=== PATIENT | male | born 1985 | race Caucasian/White ===

== ENCOUNTER 2017-02-27 00:24 | Emergency (ER) ==
[2017-02-27] MEDS ORDERED: SODIUM CHLORIDE 1,000 ML IV STA (00:28)
[2017-02-27 00:35] VITALS: TEMP 98; BMI 26.4
[2017-02-27] MEDS ORDERED: TORADOL IVP STA (00:37)
[2017-02-27] MEDS ORDERED: DILAUDID 1 MG/ML SYRINGE IVP STA (00:37)
[2017-02-27] MEDS ORDERED: ZOFRAN 4 MG/2 ML IVP STA (00:37)
[2017-02-27 00:42] LABS: BASOPHILS # (AUTO) 0.1 K/uL (0-0.2); BASOPHILS % (AUTO) 0.4 % (0.0-3.0); EOSINOPHILS # (AUTO) 0.2 K/ul (0.0-0.7); EOSINOPHILS % (AUTO) 1.9 % (0.0-7.0); HEMATOCRIT 38.5 % (42.0-52.0); HEMOGLOBIN 13.5 g/dl (14.0-18.0); IMMATURE GRANULOCYTE % (AUTO) 0.3 % (0.0-5.0); LYMPHOCYTES # (AUTO) 2.8 K/uL (0.60-3.4); LYMPHOCYTES % (AUTO) 24.7 (10.0-50.0); MEAN CORPUSCULAR HEMOGLOBIN 30.7 pg (27.0-31.0); MEAN CORPUSCULAR HGB CONC 35.1 (31.8-35.4); MEAN CORPUSCULAR VOLUME 87.5 fl (80.0-94.0); MONOCYTES # (AUTO) 0.7 K/uL (0.4-2.0); MONOCYTES % (AUTO) 5.9 (0-10); NEUTROPHILS # (AUTO) 7.5 K/ul (2.0-6.9); NEUTROPHILS % (AUTO) 66.8; PLATELET COUNT 233 10^3/uL (140-440); WHITE BLOOD COUNT 11.26 K/ul (4.2-10.2)
[2017-02-27 01:02] LABS: ALBUMIN 3.7 g/dL (3.4-5.0); ALBUMIN/GLOBULIN RATIO 1.09; ANION GAP 16.5; BILIRUBIN,TOTAL 0.53 mg/dL (0.00-1.20); BUN/CREATININE RATIO 8.59; CALCIUM 8.9 mg/dL (8.2-10.2); CREATININE 1.28 mg/dL (0.60-1.10); POTASSIUM 3.5 mmol/L (3.5-5.1); TOTAL PROTEIN 7.1 g/dL (6.4-8.2)
[2017-02-27 01:11] LABS: ERYTHROCYTE SEDIMENTATION RATE 8 mm/hr (0-15); ESR INTERNAL QC INTERNAL QC VALID
[2017-02-27 01:27] LABS: TROPONIN I 0.01 ng/ml (0.0000-0.4000)
[2017-02-27 01:35] LABS: CREATINE KINASE MB 1.4 ng/ml (0.0-3.6)
[2017-02-27] MEDS ORDERED: ATIVAN IVP STA (01:41)
[2017-02-27] MEDS ORDERED: ATIVAN ONE (01:41)
--- NOTE | 2017-02-27 02:02 | CT ---
Exam: CT of the abdomen and pelvis without and with contrast History: Right lower quadrant pain Technique: [address] of the abdomen and pelvis without and with intravascular contrast FINDINGS: The lung bases are clear. No significant liver abnormality. The adrenals, pancreas and sp larissa are unremarkable. The stomach and hiatus are unremarkable.The gallbladder appears normal. Mild right hydroureter secondary to a 2 mm ureterovesicular junction calculus. The kidneys appear normal otherwise. Vascular structures appear normal. Right ureterovesicular junction calculus. Pelvic genitourinary structures appear normal otherwise. No acute findings of the skeleton. Impression: 1. Mild right hydronephrosis and hydroureter secondary to a 2 mm ureterovesicular junction calculus . Negative exam otherwise.
[2017-02-27 04:21] VITALS: BP 131/73
--- NOTE | 2017-02-27 05:10 | ED.PDOC ---
General ED Provider: Dr. RUDY LANGE-ER Chief Complaint: Abdominal Pain Stated Complaint: i hurting Time Seen by Physician: 00:30 Mode of Arrival: Walk-In Information Source: Patient, Family Exam Limitations: No limitations Primary Care Provider: RUDY LANGE Nursing and Triage Documentation Reviewed and Agree: Yes GI Complaint Exam - Abdominal Pain Complaint/Exam Onset: Gradual Duration: several hours Symptoms Are: Still present Timing: Constant Initial Severity: Mild Current Severity: Moderate Location of Pain: Discrete, RLQ Radiates To: Reports: Back Character: Reports: Dull, Aching Alleviating: Reports: None Associated Signs and Symptoms: Reports: Back pain. Denies: Diaphoresis, Fever, Cough, Chest pain, Dizziness, Constipation, Blood in stool, Dysuria, Urinary frequency, Decreased urine output, Decreased appetite, Discharge, Nausea, Vomiting, Diarrhea, Decreased activity AAA Risk Factors: Reports: None Differential Diagnoses: Appendicitis, Constipation, Pancreatitis, Ureteral Stone Quality Indicator For Non-Traumatic Chest Pain/Syncope: EKG Performed Review of Systems - Review Of Systems Constitutional: Reports: No symptoms Eyes: Reports: No symptoms Ears, Nose, Mouth, Throat: Reports: No symptoms Respiratory: Reports: No symptoms Cardiac: Reports: No symptoms GI: Reports: Abdominal pain : Reports: No symptoms Musculoskeletal: Reports: No symptoms Skin: Reports: No symptoms Neurological: Reports: No symptoms Endocrine: Reports: No symptoms Hematologic/Lymphatic: Reports: No symptoms All Other Systems: Reviewed and Negative Past Medical History - Past Medical History Previously Healthy: Yes Endocrine: Reports: None Cardiovascular: Reports: None Respiratory: Reports: None Hematological: Reports: None Gastrointestinal: Reports: None Genitourinary: Reports: None Neuro/Psych: Reports: None Musculoskeletal: Reports: None Cancer: Reports: None - Surgical History General Surgical History: Reports: Unknown - Family History Family History: Reports: Unknown - Social History Smoking Status: Current every day smoker Hx Substance Use: No Alcohol Screening: None Lives: With family - Immunizations Tetanus Shot up to Date: (UNKNOWN) Physical Exam - Physical Exam Appearance: Well-appearing, No pain distress, Well-nourished Pain Distress: Moderate Eyes: EBONY, EOMI, Conjunctiva clear ENT: Ears normal, Nose normal, Oropharynx normal Neck: Supple Respiratory: Airway patent, Breath sounds clear, Breath sounds equal, Respirations nonlabored Cardiovascular: RRR GI/: Soft, Nontender, No masses, Bowel sounds normal, No Organomegaly Musculoskeletal: Normal strength, ROM intact, No edema, No calf tenderness Skin: Warm, Dry, Normal color Neurological: Sensation intact Psychiatric: Affect appropriate, Mood appropriate Interpretation - Radiology Interpretation Radiology Interpretation By: Radiologist Radiology Results: Positive Exam Interpreted: CT Scan ("2mm right UV stone") Re-Evaluation - Re-Evaluation Time of Re-Evaluation: 05:09 Status: Improved Vital Signs Stable: Yes Pain Level: 0 Appearance: NAD Lungs: Clear Skin: Warm and Dry Neuro: Alert and Oriented X3 CV: RRR Critical Care Note - Critical Care Note Total Time (mins): 0 Course - Course Hematology/Chemistry: 02/27/17 00:40 02/27/17 00:40 Orders, Labs, Meds: Lab Review 02/27/17 02/27/17 00:40 06:00 WBC 11.26 H RBC 4.40 L Hgb 13.5 L Hct 38.5 L MCV 87.5 MCH 30.7 MCHC 35.1 RDW Coeff of Rogelio 12.6 Plt Count 233 Immature Gran % (Auto) 0.3 Neut % (Auto) 66.8 Lymph % (Auto) 24.7 Harnett % (Auto) 5.9 Eos % (Auto) 1.9 Baso % (Auto) 0.4 Immature Gran # (Auto) 0.0 Neut # 7.5 H Lymph # 2.8 Harnett # 0.7 Eos # 0.2 Baso # 0.1 ESR 8 Sodium 137 Potassium 3.5 Chloride 102 Carbon Dioxide 22 Anion Gap 16.5 BUN 11 Creatinine 1.28 H Estimated GFR (MDRD) 65.00 BUN/Creatinine Ratio 8.59 Glucose 182 H Calcium 8.9 Total Bilirubin 0.53 AST 17 ALT 16 Alkaline Phosphatase 84 Total Creatine Kinase 208 CK-MB (CK-2) 1.4 CK-MB (CK-2) % 0.08446 Troponin I 0.0100 Total Protein 7.1 Albumin 3.7 Globulin 3.4 Albumin/Globulin Ratio 1.09 Amylase 55 Lipase 55 Urine Color Sangeeta Urine Clarity Clear Urine pH 6.0 Ur Specific [place] >=1.030 Urine Protein 2+ Urine Glucose (UA) Negative Urine Ketones Negative Urine Blood 3+ Urine Nitrite Negative Urine Bilirubin 1+ Urine Urobilinogen 1.0 Ur Leukocyte Esterase Negative Ur Squamous Epith Cells Pending Orders Category Date Time Status EKG-(ED ONLY) Stat CARDIO 02/27/17 00:38 Completed NPO REMINDER: IMAGING ONCE CARE 02/27/17 00:38 Completed ED IV/MEDIPORT/POWERPORT .ONCE EMERGENCY 02/27/17 00:28 Active Strain Urine [ED STRAIN URINE] .ONCE EMERGENCY 02/27/17 06:15 Active AMYLASE Stat LAB 02/27/17 00:40 Completed CBC W/ AUTO DIFF Stat LAB 02/27/17 00:40 Completed COMPREHENSIVE METABOLIC PANEL Stat LAB 02/27/17 00:40 Completed CREATINE KINASE Stat LAB 02/27/17 00:40 Completed ESR Stat LAB 02/27/17 00:40 Completed LIPASE Stat LAB 02/27/17 00:40 Completed TROPONIN I Stat LAB 02/27/17 00:40 Completed URINALYSIS C & S IF INDICATED Stat LAB 02/27/17 06:00 Results URINE DRUG SCREEN (RAPID FOR ED) [DRUG SCREEN, URINE, LAB 02/27/17 06:08 Received RAPID] Stat 0.9 % Sodium Chloride [Saline Flush] MEDS 02/27/17 00:28 Ordered 1 syr IVF PRN PRN Hydromorphone HCl [Dilaudid 1 mg/ml Syringe] MEDS 02/27/17 00:37 Discontinued 1 mg IVP ONCE STA Ketorolac Tromethamine [Toradol] MEDS 02/27/17 00:37 Discontinued 30 mg IVP ONCE STA Lorazepam Inj [Ativan] MEDS 02/27/17 01:41 Discontinued 2 mg .ROUTE .STK-MED ONE Mag Hydrox/Al Hydrox/Simeth [Mylanta Susp] MEDS 02/27/17 06:14 Stat 30 ml PO ONCE STA Ondansetron HCl/Pf [Zofran 4 mg/2 ml] MEDS 02/27/17 00:37 Discontinued 4 mg IVP ONCE STA Sodium Chloride 0.9% [Sodium Chloride] 1,000 ml MEDS 02/27/17 00:28 Active IV 100 mls/hr CT ABDOMEN/PELVIS W/WO CONTRAS Stat RADS 02/27/17 00:38 Completed Medications Generic Name Dose Route Start Last Admin Trade Name Freq PRN Reason Stop Dose Admin Sodium Chloride 1,000 mls @ 100 mls/hr 02/27/17 00:28 02/27/17 01:00 Sodium Chloride IV 02/27/17 10:27 100 mls/hr .Q10H STA Administration Sodium Chloride 1 syr 02/27/17 00:28 02/27/17 01:53 Saline Flush IVF 1 syr PRN PRN Administration To flush IV Discontinued Medications Generic Name Dose Route Start Last Admin Trade Name Devonteq PRN Reason Stop Dose Admin Al Hydroxide/Mg Hydroxide 30 ml 02/27/17 06:14 Mylanta Susp PO 02/27/17 06:15 ONCE STA Hydromorphone HCl 1 mg 02/27/17 00:37 02/27/17 01:16 Dilaudid 1 Mg/Ml Syringe IVP 02/27/17 00:38 1 mg ONCE STA Administration Ketorolac Tromethamine 30 mg 02/27/17 00:37 02/27/17 01:17 Toradol IVP 02/27/17 00:38 30 mg ONCE STA Administration Ondansetron HCl 4 mg 02/27/17 00:37 02/27/17 01:17 Zofran 4 Mg/2 Ml IVP 02/27/17 00:38 4 mg ONCE STA Administration Vital Signs: Temp Pulse Resp BP Pulse Ox 02/27/17 04:21 69 20 131/73 96 02/27/17 02:16 80 18 129/84 96 02/27/17 00:29 98 F 76 28 H 124/77 100 Departure - Departure Time of Disposition: 06:16 Disposition: HOME SELF-CARE Discharge Problem: Ureteral stone Instructions: Ureteral Stones (ED) Condition: Good Pt referred to PMD for follow-up: Yes Additional Instructions: norco 7.5mg q 4hrs prn pain#10---flomax 0.4q daily #2--push fluids--recheck in 48hrs if stone not passed--strain all urine Allergies/Adverse Reactions: Allergies No Known Allergies Allergy (Verified 02/27/17 01:35) Home Medications: Ambulatory Orders 1 [No Reported Medications] 11/23/15 Disposition Discussed With: Patient
[2017-02-27 06:13] LABS: ADD URINE MICROSCOPIC YES; BILIRUBIN,URINE 1+ (NEGATIVE); KETONES,URINE Negative (NEGATIVE); LEUKOCYTE ESTERASE ,URINE Negative (NEGATIVE); NITRITE,URINE Negative (NEGATIVE); PROTEIN,URINE 2+ (NEGATIVE); URINE, BLOOD 3+ (NEGATIVE)
[2017-02-27] MEDS ORDERED: MYLANTA SUSP PO STA (06:14)
[2017-02-27] MEDS ORDERED: FLOMAX PO STA (06:16)
[2017-02-27 06:21] LABS: COCAIN SCREEN,URINE NEGATIVE (NEGATIVE)
== END 2017-02-27 06:26 | disposition home or self-care (01) ==
LOC: ED 00:24
DX: N20.1 Calculus of ureter (principal); F17.210 Nicotine dependence, cigarettes, uncomplicated
CPT/HCPCS: 36415; 80053; 80306; 81001; 82150; 82550; 82553; 83690; 84484; 85025; 85651; 93005; 93010; 96361; 96374; 96375; 99284

== ENCOUNTER 2017-06-23 08:12 | Emergency (ER) ==
[2017-06-23 08:19] VITALS: BP 147/65; TEMP 98.6; BMI 24.7
--- NOTE | 2017-06-23 08:29 | ED.PDOC ---
General ED Provider: Dr. RUDY ADAM Chief Complaint: Chest Pain Stated Complaint: Chest Tightness. HPI: Onset yesterday evening after splitting wood. Sensation across back like a rubber band tightening. Denies SOB , Diaphoresis or Nausea or vomiting. Has some aching in Lt hand referred from Lt shoulder. Admits to using canabis yesterday attempting to relax. Past use of Meth, most recently 1 week ago. Time Seen by Physician: 08:30 Mode of Arrival: Walk-In Information Source: Patient Exam Limitations: No limitations Primary Care Provider: RUDY LANGE Nursing and Triage Documentation Reviewed and Agree: Yes Reviewed sepsis parameters & appropriate labs ordered?: Yes System Inflammatory Response Syndrome: Not Applicable Sepsis Protocol: For patient's 13 years and over: Temp is 96.8 and below OR 101 and greater Pulse >90 BPM Resp >20/minute Acutely Altered Mental Status Are patient's symptoms suggestive of a new infection, such as: -Pneumonia -Skin, Soft Tissue -Endocarditis -UTI -Bone, Joint Infection -Implantable Device -Acute Abdominal Infection -Wound Infection -Meningitis -Blood Stream Catheter Infection -Unknown System Inflammatory Response Syndrome: Not Applicable Cardiovascular Complaint Exam - Chest Pain Complaint/Exam Duration: 12 hrs Symptoms Are: Still present Timing: Constant Initial Severity: Moderate Current Severity: Mild Location: Reports: Left anterior, Other (posterior chest) Pain Radiates: Reports: Left shoulder, Other (Lt Hand) Character: Reports: Aching, Tightness Aggravating: Reports: Deep breaths Alleviating: Reports: Upright position Associated Signs and Symptoms: Reports: Back pain. Denies: Diaphoresis, Nausea , Vomiting, Palpitations, Cough, Abdominal pain, Dizziness, Short of air, Calf pain, Calf swelling Related History: Denies: Similar episode Related Surgical History: Reports: None History of Healthcare-Acquired Pneumonia: Reports: No AMI/ACS Risk Factors: Reports: Smoking (Canabis and meht use) TAD Risk Factors: Reports: None Pulmonary Embolism Risk Factors: Reports: None Prior Care for this Complaint: No Review of Systems - Review Of Systems Constitutional: Denies: Chills, Diaphoresis, Malaise, Weakness, Sweats Eyes: Reports: Blurred vision. Denies: Blindness, Decreased acuity, Foreign body sensation, Inflammation, Previous injury, Tunnel vision Ears, Nose, Mouth, Throat: Denies: Ear pain, Ear discharge, Nose pain, Nose discharge, Mouth pain, Mouth swelling Respiratory: Denies: Cough, Orthopnea, Short of air, Stridor, Wheezing Cardiac: Reports: Chest pain. Denies: Irregular heart rate, Palpitations GI: Reports: No symptoms : Reports: No symptoms Musculoskeletal: Reports: Back pain, Muscle stiffness Skin: Reports: No symptoms Neurological: Reports: No symptoms Endocrine: Reports: No symptoms Hematologic/Lymphatic: Reports: No symptoms All Other Systems: Reviewed and Negative Past Medical History - Past Medical History Previously Healthy: Yes Endocrine: Reports: None Cardiovascular: Reports: None Respiratory: Reports: None Hematological: Reports: None Gastrointestinal: Reports: None Genitourinary: Reports: None Neuro/Psych: Reports: None Musculoskeletal: Reports: None Cancer: Reports: None - Surgical History General Surgical History: Reports: Unknown - Family History Family History: Reports: Unknown - Social History Smoking Status: Current every day smoker, Light tobacco smoker Hx Substance Use: No Alcohol Screening: None Physical Exam - Physical Exam Appearance: No pain distress, Well-nourished Ill-appearing: None Pain Distress: None Eyes: EBONY, EOMI, Conjunctiva clear, Conjunctiva inflammed, Conjunctiva pale, Right pupil size, Left pupil size ENT: Ears normal, Nose normal, Oropharynx normal, TMs Occluded Respiratory: Airway patent, Breath sounds clear, Breath sounds equal Cardiovascular: RRR, Pulses normal, No rub, No murmur GI/: Soft, Nontender, No masses, Bowel sounds normal, No Organomegaly Musculoskeletal: Normal strength, ROM intact (Tenderness across upper thoracic spinal region with paraspinous muscular spasm) Skin: Warm, Dry, Normal color Neurological: Sensation intact, Motor intact, Cranial nerves intact, Alert, Oriented Psychiatric: Affect appropriate, Mood appropriate Critical Care Note - Critical Care Note Total Time (mins): 0 Course - Course Hematology/Chemistry: 06/23/17 09:15 06/23/17 09:15 Orders, Labs, Meds: Lab Review 06/23/17 06/23/17 09:15 09:15 WBC 12.74 H RBC 4.89 Hgb 15.0 Hct 44.1 MCV 90.2 MCH 30.7 MCHC 34.0 RDW Coeff of Rogelio 12.2 Plt Count 306 Immature Gran % (Auto) 0.2 Neut % (Auto) 73.4 Lymph % (Auto) 18.1 Bartholomew % (Auto) 5.4 Eos % (Auto) 2.4 Baso % (Auto) 0.5 Immature Gran # (Auto) 0.0 Neut # 9.3 H Lymph # 2.3 Bartholomew # 0.7 Eos # 0.3 Baso # 0.1 Sodium 140 Potassium 3.8 Chloride 105 Carbon Dioxide 28 Anion Gap 10.8 BUN 12 Creatinine 1.07 Estimated GFR (MDRD) 79.00 BUN/Creatinine Ratio 11.21 Glucose 86 Calcium 8.8 Total Bilirubin 0.3 AST 20 ALT 18 Alkaline Phosphatase 92 Troponin I < 0.0100 Total Protein 7.4 Albumin 3.8 Globulin 3.6 Albumin/Globulin Ratio 1.06 Orders Category Date Time Status EKG-(ED ONLY) Stat CARDIO 06/23/17 08:49 Completed ED HOSPICE COORDINATOR APPLIED EMERGENCY 06/23/17 09:06 Active CBC W/ AUTO DIFF Stat LAB 06/23/17 09:15 Completed COMPREHENSIVE METABOLIC PANEL Stat LAB 06/23/17 09:15 Completed TROPONIN I Stat LAB 06/23/17 09:15 Completed Ketorolac Tromethamine [Toradol] MEDS 06/23/17 10:27 Stat 15 mg IVP ONCE STA Orphenadrine Citrate [Norflex] MEDS 06/23/17 10:28 Stat 100 mg PO ONCE STA CHEST, 2 VIEWS PA & LAT Stat RADS 06/23/17 09:06 Completed Medications Discontinued Medications Generic Name Dose Route Start Last Admin Trade Name Freq PRN Reason Stop Dose Admin Ketorolac Tromethamine 15 mg 06/23/17 10:27 06/23/17 10:37 Toradol IVP 06/23/17 10:28 15 mg ONCE STA Administration Orphenadrine Citrate 100 mg 06/23/17 10:28 06/23/17 10:34 Norflex PO 06/23/17 10:29 100 mg ONCE STA Administration Vital Signs: Temp Pulse Resp BP Pulse Ox 06/23/17 08:12 98.6 F 92 H 20 147/65 H 99 RUY Risk Score RUY Risk Score: Risk Score Odds of by 30D 0 0.1 (0.1-0.2) 1 0.3 (0.2-0.3) 2 0.4 (0.3-0.5) 3 0.7 (0.6-0.9) 4 1.2 (1.0-1.5) 5 2.2 (1.9-2.6) 6 3.0 (2.5-3.6) 7 4.8 (3.8-6.1) Departure - Departure Time of Disposition: 10:30 Disposition: HOME SELF-CARE Discharge Problem: Back pain Condition: Good Pt referred to PMD for follow-up: Yes (1 week) Prescriptions: Ibuprofen 200 mg PO Q6HR #20 tablet Orphenadrine Citrate 100 mg PO Q12HR PRN #20 tablet.er PRN Reason: Severe Pain Allergies/Adverse Reactions: Allergies No Known Allergies Allergy (Verified 06/23/17 08:21) Home Medications: Ambulatory Orders Ibuprofen 200 mg PO Q6HR #20 tablet 06/23/17 Orphenadrine Citrate 100 mg PO Q12HR PRN #20 tablet.er 06/23/17 Attending Provider: ATTENDING PROVIDER: DATE OF SERVICE: 06/23/17 SUBJECTIVE: This 32 year old WHITE/ M was hospitalized . REVIEW OF SYSTEMS: CONSTITUTIONAL: No night sweats. No fatigue, malaise, lethargy. No fever or chills. HEENT: Eyes: No visual changes. No eye pain. No eye discharge. ENT: No runny nose. No epistaxis. No sinus pain. No odynophagia. No congestion. RESPIRATORY: No cough, no congestion. No hemoptysis. No shortness of breath. CARDIOVASCULAR: No angina symptoms. No CHF symptoms. No atypical chest pain for CAD. No palpitations. No orthopnea.. GASTROINTESTINAL: No abdominal pain. No nausea or vomiting. No diarrhea or constipation. No hematemesis. No hematochezia. GENITOURINARY: No urgency. No frequency. No dysuria. No hematuria. No obstructive symptoms. No discharge. No pain. No significant abnormal bleeding. MUSCULOSKELETAL: No musculoskeletal pain; no joint swelling. NEUROLOGICAL: Awake, alert, oriented to time, place and person. No headache. No neck pain. No syncope. No seizures. No dizziness. PSYCHIATRIC: Not anxious. No depression. No suicidal thoughts. No homicidal thoughts. SKIN: No rash. No lesions. No wounds. ENDOCRINE: No unexplained weight loss. No weight gain. HEMATOLOGIC/LYMPHATIC: No anemia. No purpura. No petechiae. No prolonged or excessive bleeding. No palpable lymph nodes. PHYSICAL EXAMINATION: GENERAL: The patient is awake, alert and oriented, lying/sitting in bed in no distress. VITAL SIGNS: Temperature 98.6 F, Pulse 92, Respiratory Rate 20, BP 147/65, Pulse Ox 99% HEENT: Head normocephalic, atraumatic. Eyes: Extraocular muscles are intact. Pupils are equal, round and reactive to light and accommodation. Ears: No lesions. Nose appeared normal. Throat: No exudate or erythema. NECK: Supple. No JVD, no carotid bruit. No lymphadenopathy or thyromegaly. LUNGS: Clear to auscultation. Percussion note normal. Chest symmetrical. HEART: S1, S2, no S3. No murmurs. No cyanosis or clubbing. No ascites. Pulses: Dorsalis pedis and posterior tibial pulses +1 to +2 both sides. ABDOMEN: Soft. Non-tender. Bowel sounds active. No CVA tenderness. No mass felt. EXTREMITIES: No edema. Full range of motion of all extremities, equal. NEUROLOGIC: No focal deficit. Cranial nerves II through XII are grossly intact. No headache, no double vision or headache. SKIN: Not dry. Intact. Turgor-normal. LYMPHATIC: No palpable lymph nodes/no lymphedema. MUSCULOSKELETAL: Normal joints with no swelling. Muscle tone is normal. LAB REVIEW: 06/23/17 09:15 06/23/17 09:15 06/23/17 09:15: Sodium 140, Potassium 3.8, Chloride 105, Carbon Dioxide 28, Anion Gap 10.8, BUN 12, Creatinine 1.07, Estimated GFR (MDRD) 79.00, BUN/ Creatinine Ratio 11.21, Glucose 86, Calcium 8.8, Total Bilirubin 0.3, AST 20, ALT 18, Alkaline Phosphatase 92, Troponin I < 0.0100, Total Protein 7.4, Albumin 3.8, Globulin 3.6, Albumin/Globulin Ratio 1.06 06/23/17 09:15: WBC 12.74 H, RBC 4.89, Hgb 15.0, Hct 44.1, MCV 90.2, MCH 30.7, MCHC 34.0, RDW Coeff of Rogelio 12.2, Plt Count 306, Immature Gran % (Auto) 0.2, Neut % (Auto) 73.4, Lymph % (Auto) 18.1, Bartholomew % (Auto) 5.4, Eos % (Auto) 2.4, Baso % (Auto) 0.5, Immature Gran # (Auto) 0.0, Neut # 9.3 H, Lymph # 2.3, Bartholomew # 0.7, Eos # 0.3, Baso # 0.1 ASSESSMENT: Please see below. PLAN: Plan and coordination of the patient's care discussed in the presence of Issuer and nurse. EDUCATION: CONDITION: SCRIBED BY: RUDY ADAM, Senior Genetic Counselor scribed while in presence of service performed by on 06/23/17 ([id number]) Take meds as directed. Use warm moist heat to upper back area of tenderness. Avoid strenuous activity Patient Education - Education Patient Education: Body/Joint mechanics, Home Exercise Program, Home Safety Teaching Recipient: Patient (Take meds as directed. Use warm moist heat to upper back area of tenderness. Avoid strenuous activity)
--- NOTE | 2017-06-23 09:42 | DI ---
EXAM: PA and lateral views of the chest HISTORY: Chest pain COMPARISON: Chest x-ray 03/28/2015 and 05/17/2013 FINDINGS: The cardiomediastinal silhouette is normal. There is no pneumothorax or pleural effusion. There is no consolidation, nodule or mass. The osseous structures are unremarkable. IMPRESSION: No acute cardiopulmonary process
[2017-06-23] MEDS ORDERED: TORADOL IVP STA (10:27)
[2017-06-23] MEDS ORDERED: NORFLEX PO STA (10:28)
== END 2017-06-23 10:57 | disposition home or self-care (01) ==
LOC: ED 08:12
DX: M54.9 Dorsalgia, unspecified (principal); R07.9 Chest pain, unspecified; F17.210 Nicotine dependence, cigarettes, uncomplicated
CPT/HCPCS: 36415; 80053; 84484; 85025; 93005; 93010; 96374; 99283

== ENCOUNTER 2018-11-08 04:18 | Emergency (ER) ==
[2018-11-08 04:28] VITALS: BP 149/72; TEMP 98.2; BMI 25.0
[2018-11-08] MEDS ORDERED: ROCEPHIN IM STA (04:35)
[2018-11-08] MEDS ORDERED: LIDOCAINE HCL 1% SDV IM STA (04:35)
[2018-11-08] MEDS ORDERED: DIFLUCAN PO STA (04:40)
--- NOTE | 2018-11-08 04:41 | ED.PDOC ---
General ED Provider: Dr. JOSE HENDRICKSON Chief Complaint: Cellulitis Stated Complaint: Says has cellulitis in right foot. Redness/edema to foot. Painful. Says was admitted to [facility] x 1 day but left AMA due to not getting pain med. Here due to increased pain in foot. Also states that the bactrum gave him a yeast infection on the penis Time Seen by Physician: 04:34 Mode of Arrival: Walk-In Information Source: Patient Primary Care Provider: RUDY LANGE Nursing and Triage Documentation Reviewed and Agree: Yes Does patient meet sepsis criteria?: No System Inflammatory Response Syndrome: Not Applicable Sepsis Protocol: For patient's 13 years and over: Temp is 96.8 and below OR 101 and greater Pulse >90 BPM Resp >20/minute Acutely Altered Mental Status Are patient's symptoms suggestive of a new infection, such as: -Pneumonia -Skin, Soft Tissue -Endocarditis -UTI -Bone, Joint Infection -Implantable Device -Acute Abdominal Infection -Wound Infection -Meningitis -Blood Stream Catheter Infection -Unknown Skin Complaint Exam - Skin/Soft Tissue Complaint/Exam Onset/Duration: 2 days Symptoms Are: Still present Timing: Constant Initial Severity: Moderate Current Severity: Moderate Location: Rigth dorsum of foot Character: Reports: Redness, Swelling, Painful Aggravating: Reports: Touch Alleviating: Reports: None Associated Signs and Symptoms: Reports: Tenderness, Red streaks Related History: Reports: Similar episode Skin Findings: Present: Erythema, Induration, Other (Balanitis of the penis ) Joint Tenderness Present: Yes Differential Diagnoses: Cellulitis Review of Systems - Review Of Systems Constitutional: Reports: No symptoms Eyes: Reports: No symptoms Ears, Nose, Mouth, Throat: Reports: No symptoms Respiratory: Reports: No symptoms Cardiac: Reports: No symptoms GI: Reports: No symptoms : Reports: No symptoms Musculoskeletal: Reports: No symptoms Skin: Reports: Rash (Right foot, yeast infection on the glands penis. ) Neurological: Reports: Anxiety Endocrine: Reports: No symptoms Hematologic/Lymphatic: Reports: No symptoms All Other Systems: Reviewed and Negative Past Medical History - Past Medical History Previously Healthy: Yes Endocrine: Reports: None Cardiovascular: Reports: Hypertension Respiratory: Reports: None Hematological: Reports: None Gastrointestinal: Reports: GERD Genitourinary: Reports: None Neuro/Psych: Reports: None Musculoskeletal: Reports: None Cancer: Reports: None - Surgical History General Surgical History: Reports: Other (CELLULITIS IN NOSE - SURGERY IN 2011) - Family History Family History: Reports: Unknown - Social History Smoking Status: Current every day smoker, Light tobacco smoker Hx Substance Use: No Alcohol Screening: None - Immunizations Tetanus Shot up to Date: Yes Physical Exam - Physical Exam Appearance: Well-appearing, No pain distress, Well-nourished Eyes: EBONY, EOMI, Conjunctiva clear ENT: Ears normal, Nose normal, Oropharynx normal Respiratory: Airway patent, Breath sounds clear, Breath sounds equal, Respirations nonlabored Cardiovascular: RRR, Pulses normal, No rub, No murmur GI/: Soft, Nontender, No masses, Bowel sounds normal, No Organomegaly Musculoskeletal: Normal strength, ROM intact, No calf tenderness, Edema (mild right foot edema ) Skin: Warm, Dry Neurological: Sensation intact, Motor intact, Reflexes intact, Cranial nerves intact, Alert, Oriented Psychiatric: Affect appropriate, Mood appropriate Critical Care Note - Critical Care Note Total Time (mins): 0 Course - Course Orders, Labs, Meds: Orders Category Date Time Status Ceftriaxone Sodium [Rocephin] MEDS 11/08/18 04:35 Discontinued 1 gm IM ONCE STA Fluconazole [Diflucan] MEDS 11/08/18 04:40 Discontinued 150 mg PO ONCE STA Ketorolac Tromethamine [Toradol] MEDS 11/08/18 04:44 Discontinued 60 mg IM ONCE STA Lidocaine HCl/Pf [Lidocaine HCl 1% Sdv] MEDS 11/08/18 04:35 Discontinued 2.1 ml IM ONCE STA Medications Discontinued Medications Generic Name Dose Route Start Last Admin Trade Name Freq PRN Reason Stop Dose Admin Ceftriaxone Sodium 1 gm 11/08/18 04:35 11/08/18 05:12 Rocephin IM 11/08/18 04:36 1 gm ONCE STA Administration Fluconazole 150 mg 11/08/18 04:40 11/08/18 05:26 Diflucan PO 11/08/18 04:41 150 mg ONCE STA Administration Ketorolac Tromethamine 60 mg 11/08/18 04:44 11/08/18 05:13 Toradol IM 11/08/18 04:45 60 mg ONCE STA Administration Lidocaine HCl 2.1 ml 11/08/18 04:35 11/08/18 05:13 Lidocaine Hcl 1% Sdv IM 11/08/18 04:36 2.1 ml ONCE STA Administration Vital Signs: Temp Pulse Resp BP Pulse Ox 11/08/18 04:19 98.2 F 114 H 20 149/72 H 98 Departure - Departure Time of Disposition: 05:40 Disposition: HOME SELF-CARE Discharge Problem: Cellulitis, Yeast infection of the skin, Balanitis Instructions: Cellulitis (ED) Condition: Stable Pt referred to PMD for follow-up: Yes IPMP verified?: No Additional Instructions: Take Medications as prescribed Follow up with PCP in 1-2 days return if worse. Prescriptions: Cephalexin [Keflex] 500 mg PO Q8HR #30 capsule Mupirocin [Bactroban Ointment 1 Gram Applicator (ER)] 1 gm TP ONCE #60 appl Allergies/Adverse Reactions: Allergies sulfamethoxazole [From Bactrim] Adverse Reaction (Verified 11/08/18 04:29) Rash states, "causes yeast infections" trimethoprim [From Bactrim] Adverse Reaction (Verified 11/08/18 04:29) yeast infection Home Medications: Ambulatory Orders Cephalexin [Keflex] 500 mg PO Q8HR #30 capsule 11/08/18 Ibuprofen 400 mg PO Q6HR 11/08/18 Mupirocin [Bactroban Ointment 1 Gram Applicator (ER)] 1 gm TP ONCE #60 appl Disposition Discussed With: Patient
[2018-11-08] MEDS ORDERED: TORADOL IM STA (04:44)
== END 2018-11-08 05:39 | disposition home or self-care (01) ==
LOC: ED 04:18
DX: L03.115 Cellulitis of right lower limb (principal); B37.42 Candidal balanitis; F17.210 Nicotine dependence, cigarettes, uncomplicated
CPT/HCPCS: 96372; 99282

== ENCOUNTER 2020-09-09 00:03 | Observation (INO) ==
[2020-09-09] MEDS ORDERED: TYLENOL PO STA (00:25)
[2020-09-09] MEDS ORDERED: ZOFRAN 4 MG/2 ML IVP STA (00:32)
--- NOTE | 2020-09-09 00:37 | ED.PDOC ---
General ED Provider: Dr. JOSE HENDRICKSON Chief Complaint: Nausea/Vomiting Stated Complaint: comes the ER with a 2 day history of Sore throat, Dyspepsia, unable to smell, Mid back pain nausea and vomiting with headache and fever and chill. Admits to using Meth last week. Time Seen by Provider: 09/09/20 00:10 Mode of Arrival: Walk-In Information Source: Patient Nursing and Triage Documentation Reviewed and Agree: Yes Does patient meet sepsis criteria?: Yes If yes, has appropriate treatment been initiated?: Yes System Inflammatory Response Syndrome: Temp 101F or Greater, Pulse >90 BPM and Not Applicable Sepsis Protocol: For patient's 13 years and over: Temp is 96.8 and below OR 101 and greater Pulse >90 BPM Resp >20/minute Acutely Altered Mental Status Are patient's symptoms suggestive of a new infection, such as: -Pneumonia -Skin, Soft Tissue -Endocarditis -UTI -Bone, Joint Infection -Implantable Device -Acute Abdominal Infection -Wound Infection -Meningitis -Blood Stream Catheter Infection -Unknown Review of Systems Review Of Systems Constitutional: Reports Chills and Fever Eyes: Reports No symptoms Ears, Nose, Mouth, Throat: Reports Throat pain Respiratory: Reports No symptoms Cardiac: Reports No symptoms GI: Reports Constipated, Nausea, Poor appetite, Poor fluid intake, Vomiting and Other (reflux ) : Reports No symptoms Musculoskeletal: Reports Back pain Skin: Reports No symptoms Neurological: Reports Anxiety Endocrine: Reports No symptoms Hematologic/Lymphatic: Reports No symptoms All Other Systems: Reviewed and Negative [facility] Medical History Chronic headaches Concussion injury of brain Contusion of ankle Extremity pain Family History FATHER PAD (peripheral artery disease) Hypertension Hyperlipemia Mother No problems noted. 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 History of recent travel: No Surgical History Status post nasal surgery Physical Exam Physical Exam Appearance: Reports Ill-appearing Ill-appearing: Severe Pain Distress: Severe Eyes: Reports EBONY, EOMI and Conjunctiva clear ENT: Reports Nose normal and Oropharynx normal Respiratory: Reports Airway patent and Breath sounds clear Cardiovascular: Reports Tachycardia GI/: Reports Soft and Nontender Musculoskeletal: Reports Normal strength, ROM intact and No edema Skin: Reports Warm, Dry and Normal color Neurological: Reports Motor intact, Alert and Oriented Psychiatric: Reports Anxious Interpretation General Machine Operator Rate: Tachy Rhythm: Sinus Ectopy: None EKG Interpretation Rate: Tachy Rhythm: Sinus Ectopy: None Bailey: NL ST Segment: Normal Interpretation: Sinus Tachycardia Re-Evaluation Re-Evaluation Time of Re-Evaluation: 03:30 Status: Improved Vital Signs Stable: Yes Critical Care Note Critical Care Note Total Critical Care Time (mins): 55 Course Course Hematology/Chemistry: 09/09/20 00:40 09/09/20 00:40 Orders, Labs, Meds: Lab Review 09/09/20 09/09/20 09/09/20 00:05 00:40 00:40 WBC 23.17 H RBC 4.32 L Hgb 13.5 L Hct 39.0 L MCV 90.3 MCH 31.3 H MCHC 34.6 RDW Coeff of Rogelio 12.5 Plt Count 237 Neutrophils % (Manual) 92.0 H Lymphocytes % (Manual) 3.0 L Monocytes % (Manual) 5.0 Anisocytosis Not present Sodium 134.2 L Potassium 3.63 Chloride 100.5 Carbon Dioxide 25.8 Anion Gap 11.53 BUN 13.7 Creatinine 1.17 H Estimated GFR (MDRD) 70.00 BUN/Creatinine Ratio 11.70 Glucose 95.3 Lactic Acid Calcium 8.58 Total Bilirubin 0.60 AST 22.2 ALT 17.6 Alkaline Phosphatase 86.1 Total Protein 7.26 Albumin 3.86 Globulin 3.40 Albumin/Globulin Ratio 1.13 Amylase 50.8 Lipase 66.9 Procalcitonin Adenovirus (PCR) Not detected B. pertussis DNA (PCR) Not detected B.parapertussis DNA PCR Not detected C. pneumoniae DNA (PCR) Not detected Coronavirus OC43 (PCR) Not detected Coronavirus HKU1 (PCR) Not detected Coronavirus 229E (PCR) Not detected Coronavirus NL63 (PCR) Not detected Human Metapneumovir PCR Not detected Influenza Type A (PCR) Not detected Influenza B (RT-PCR) Not detected M. pneumoniae (PCR) Not detected Parainfluenza 1 (PCR) Not detected Parainfluenza 2 (PCR) Not detected Parainfluenza 3 (PCR) Not detected Parainfluenza 4 (PCR) Not detected RSV (PCR) Not detected Entero/Rhino (PCR) Not detected SARS-CoV-2 (PCR) Not detected 09/09/20 09/09/20 00:40 00:40 WBC RBC Hgb Hct MCV MCH MCHC RDW Coeff of Rogelio Plt Count Neutrophils % (Manual) Lymphocytes % (Manual) Monocytes % (Manual) Anisocytosis Sodium Potassium Chloride Carbon Dioxide Anion Gap BUN Creatinine Estimated GFR (MDRD) BUN/Creatinine Ratio Glucose Lactic Acid 1.49 Calcium Total Bilirubin AST ALT Alkaline Phosphatase Total Protein Albumin Globulin Albumin/Globulin Ratio Amylase Lipase Procalcitonin 0.09 Adenovirus (PCR) B. pertussis DNA (PCR) B.parapertussis DNA PCR C. pneumoniae DNA (PCR) Coronavirus OC43 (PCR) Coronavirus HKU1 (PCR) Coronavirus 229E (PCR) Coronavirus NL63 (PCR) Human Metapneumovir PCR Influenza Type A (PCR) Influenza B (RT-PCR) M. pneumoniae (PCR) Parainfluenza 1 (PCR) Parainfluenza 2 (PCR) Parainfluenza 3 (PCR) Parainfluenza 4 (PCR) RSV (PCR) Entero/Rhino (PCR) SARS-CoV-2 (PCR) Orders Category Date Time Status PLACE PATIENT OBSERVATION .TO MEDSURG (MONITORED BED ADMISSION 09/09/20 02:55 Active ) EKG-(ED ONLY) Stat CARDIO 09/09/20 00:25 Completed GIVE HS SNACK 2100 CARE 09/09/20 02:51 Active INTAKE & OUTPUT Q8HR CARE 09/09/20 02:50 Active TELEMETRY MONITORING TELE CARE 09/09/20 02:57 Active VITAL SIGNS Q4HR CARE 09/09/20 02:50 Active CLEAR LIQUID DIET DIETARY 09/09/20 Breakfast Ordered HS SNACK DIETARY 09/09/20 Dinner Ordered ED ENEMA/RECTAL TUBE .ONCE EMERGENCY 09/09/20 02:47 Active AMYLASE Stat LAB 09/09/20 00:40 Completed BASIC METABOLIC PANEL DAILY@0600 LAB 09/09/20 06:00 Ordered BASIC METABOLIC PANEL DAILY@0600 LAB 09/10/20 06:00 Ordered BLOOD CULTURE (ED ONLY) Stat LAB 09/09/20 00:40 Received CBC W/ AUTO DIFF DAILY@0600 LAB 09/09/20 06:00 Ordered CBC W/ AUTO DIFF DAILY@0600 LAB 09/10/20 06:00 Ordered CBC W/ AUTO DIFF Stat LAB 09/09/20 00:40 Completed COMPREHENSIVE METABOLIC PANEL Stat LAB 09/09/20 00:40 Completed GASTRIC OCCULT BLOOD AND PH Stat LAB 09/09/20 00:44 Ordered LACTIC ACID Stat LAB 09/09/20 00:40 Completed LIPASE Stat LAB 09/09/20 00:40 Completed MANUAL DIFFERENTIAL Stat LAB 09/09/20 00:40 Completed MOLECULAR GROUP A STREP Stat LAB 09/09/20 01:20 Completed PROCALCITONIN Stat LAB 09/09/20 00:40 Completed RESPIRATORY PANEL 2.1 (PCR) Stat LAB 09/09/20 00:05 Completed URINALYSIS C & S IF INDICATED Stat LAB 09/09/20 00:25 Uncollected Acetaminophen [Tylenol] MEDS 09/09/20 00:25 Discontinued 650 mg PO ONCE STA Acetaminophen [Tylenol] MEDS 09/09/20 02:50 Active 650 mg PO Q4H PRN Ceftriaxone/D5w 1 gm Premix [Rocephin 1 gm/50 ml D5w] MEDS 09/09/20 09:00 Discontinued 1 gm in 50 ml IV DAILY Ceftriaxone/D5w 1 gm Premix [Rocephin 1 gm/50 ml D5w] MEDS 09/09/20 01:30 Discontinued 1 gm in 50 ml IV ONCE Enoxaparin Sodium [Lovenox] MEDS 09/09/20 09:00 Active 40 mg SUBCUT DAILY Hydromorphone HCl [Dilaudid 1 mg/ml Syringe] MEDS 09/09/20 00:44 Discontinued 1 mg IVP ONCE STA Hydromorphone HCl [Dilaudid 1 mg/ml Syringe] MEDS 09/09/20 02:50 Active 1 mg IVP Q4HR PRN Magnesium Hydroxide [Milk of Magnesia] MEDS 09/09/20 02:55 Discontinued 30 ml PO ONCE STA Ondansetron HCl/Pf [Zofran 4 mg/2 ml] MEDS 09/09/20 00:32 Discontinued 4 mg IVP ONCE STA Ondansetron HCl/Pf [Zofran 4 mg/2 ml] MEDS 09/09/20 02:50 Active 4 mg IVP Q6H PRN Pantoprazole Sodium [Protonix IV] MEDS 09/09/20 00:44 Discontinued 80 mg IVP ONCE STA Ringers Lactated Solution [Lactated Ringers] 1,000 ml MEDS 09/09/20 00:46 Discontinued IV BOLUS Sennosides [Senna] MEDS 09/09/20 02:55 Discontinued 17.2 mg PO ONCE STA Sodium Chloride 0.9% [Sodium Chloride] 1,000 ml MEDS 09/09/20 03:00 Active IV 150 mls/hr Sodium Chloride 0.9% [Sodium Chloride] 1,000 ml MEDS 09/09/20 00:46 Discontinued IV BOLUS RESUSCITATION STATUS Routine OTHERS 09/09/20 02:[address] ABDOMEN/PELVIS WO CONTRAST Stat RADS 09/09/20 00:[address] CHEST W/O CONTRAST Stat RADS 09/09/20 00:44 Completed Medications Generic Name Dose Route Start Last Admin Trade Name Freq PRN Reason Stop Dose Admin Acetaminophen 650 mg 09/09/20 02:50 Acetaminophen 325 Mg Tablet PO Q4H PRN Fever > 102 Enoxaparin Sodium 40 mg 09/09/20 09:00 Enoxaparin Sodium 40 Mg/0.4 Ml Syr SUBCUT DAILY ELPIDIO Hydromorphone HCl 1 mg 09/09/20 02:50 Hydromorphone Hcl 1 Mg/Ml Syringe IVP Q4HR PRN Severe Pain Sodium Chloride 1,000 mls @ 150 mls/hr 09/09/20 03:00 09/09/20 04:18 Sodium Chloride IV 150 mls/hr .Q6H40M ELPIDIO Administration CEFTRIAXONE/D5W 1 GM PREMIX 1 gm in 50 mls @ 75 mls/hr 09/09/20 21:00 Rocephin 1 Gm/50 Ml D5w IV 09/12/20 20:59 BEDTIME ELPIDIO Ondansetron HCl 4 mg 09/09/20 02:50 Ondansetron Hcl/Pf 4 Mg/2 Ml Sdv IVP Q6H PRN Nausea / Vomiting Pantoprazole Sodium 40 mg 09/09/20 04:30 09/09/20 05:00 Pantoprazole Sodium 40 Mg Vial IVP 40 mg Q12H ELPIDIO Administration Discontinued Medications Generic Name Dose Route Start Last Admin Trade Name Lowell NICOLAS Reason Stop Dose Admin Acetaminophen 650 mg 09/09/20 00:25 09/09/20 01:13 Acetaminophen 325 Mg Tablet PO 09/09/20 00:26 650 mg ONCE STA Administration Hydromorphone HCl 1 mg 09/09/20 00:44 09/09/20 01:14 Hydromorphone Hcl 1 Mg/Ml Syringe IVP 09/09/20 00:45 1 mg ONCE STA Administration Sodium Chloride 1,000 mls @ 1,000 mls/hr 09/09/20 00:46 09/09/20 01:13 Sodium Chloride IV 09/09/20 01:45 1,000 mls/hr BOLUS STA Administration Lactated Ringer's 1,000 mls @ 1,000 mls/hr 09/09/20 00:46 09/09/20 01:56 Lactated Ringers IV 09/09/20 01:45 1,000 mls/hr BOLUS STA Administration CEFTRIAXONE/D5W 1 GM PREMIX 1 gm in 50 mls @ 75 mls/hr 09/09/20 01:30 09/09/20 02:06 Rocephin 1 Gm/50 Ml D5w IV 09/09/20 02:09 75 mls/hr ONCE STA Administration CEFTRIAXONE/D5W 1 GM PREMIX 1 gm in 50 mls @ 75 mls/hr 09/09/20 09:00 Rocephin 1 Gm/50 Ml D5w IV 09/12/20 08:59 DAILY ELPIDIO Magnesium Hydroxide 30 ml 09/09/20 02:55 09/09/20 04:16 Magnesium Hydroxide 30 Ml Cup PO 09/09/20 02:56 30 ml ONCE STA Administration Ondansetron HCl 4 mg 09/09/20 00:32 09/09/20 01:14 Ondansetron Hcl/Pf 4 Mg/2 Ml Sdv IVP 09/09/20 00:33 4 mg ONCE STA Administration Pantoprazole Sodium 80 mg 09/09/20 00:44 09/09/20 01:13 Pantoprazole Sodium 40 Mg Vial IVP 09/09/20 00:45 80 mg ONCE STA Administration Sennosides 17.2 mg 09/09/20 02:55 09/09/20 04:17 Sennosides 8.6 Mg Tablet PO 09/09/20 02:56 17.2 mg ONCE STA Administration Vital Signs: Temp Pulse Resp BP Pulse Ox 09/09/20 03:20 98.1 F 120 H 20 109/65 96 09/09/20 00:05 101.6 F H 120 H 24 120/76 99 Discharge Plan Discharge Patient Disposition: PLACED OBSERVATION Discharge Problem: Strep pharyngitis, Nausea, Vomiting Constipated Qualifiers: Constipation type: slow transit constipation Qualified Code(s): K59.01 - Slow transit constipation ED Provider: JOSE HENDRICKSON Condition: Stable Physician Progress Note: []
[2020-09-09] MEDS ORDERED: PROTONIX IV IVP STA (00:44)
[2020-09-09] MEDS ORDERED: DILAUDID 1 MG/ML SYRINGE IVP STA (00:44)
[2020-09-09] MEDS ORDERED: LACTATED RINGERS 1,000 ML IV STA (00:46)
[2020-09-09] MEDS ORDERED: SODIUM CHLORIDE 1,000 ML IV STA (00:46)
[2020-09-09 00:48] LABS: HEMOGLOBIN 13.5 g/dl (14.0-18.0); MEAN CORPUSCULAR HEMOGLOBIN 31.3 pg (27.0-31.0); MEAN CORPUSCULAR HGB CONC 34.6 (31.8-35.4); MEAN CORPUSCULAR VOLUME 90.3 fl (80.0-94.0); PLATELET COUNT 237 10^3/uL (140-440); RDW COEFFICIENT OF VARIATION 12.5 % (11.6-14.8); RED BLOOD COUNT 4.32 10^6/ul (4.70-6.10); WHITE BLOOD COUNT 23.17 K/ul (4.2-10.2)
[2020-09-09 01:00] LABS: ANISOCYTOSIS NOT PRESENT (NOT PRESENT)
[2020-09-09 01:01] LABS: ALANINE AMINOTRANSFERASE 17.6 U/L (0-50); ALBUMIN 3.86 g/dL (3.5-5.0); ALKALINE PHOSPHATASE 86.1 U/L (38-126); AMYLASE 50.8 U/L (30-110); ASPARTATE AMINO TRANSFERASE 22.2 U/L (17-59); BILIRUBIN,TOTAL 0.6 mg/dL (0.2-1.3); BLOOD UREA NITROGEN 13.7 mg/dL (9-20); CALCIUM 8.58 mg/dL (8.4-10.2); CARBON DIOXIDE 25.8 mmol/L (22-30.0); CHLORIDE 100.5 mmol/L (98-107); CREATININE 1.17 mg/dL (0.60-1.10); GLUCOSE 95.3 mg/dL (74-106); LIPASE 66.9 U/L (23-300); POTASSIUM 3.63 mmol/L (3.5-5.1); SODIUM 134.2 mmol/L (134.5-145); TOTAL PROTEIN 7.26 g/dL (6.3-8.2)
[2020-09-09] MEDS ORDERED: ROCEPHIN 1 GM/50 ML D5W 1 GM/50 ML BAG IV STA (01:30)
--- NOTE | 2020-09-09 02:01 | CT ---
Exam: CT of the chest without contrast History: Chest pain FINDINGS: The lung windows show no pulmonary parenchymal abnormality. Normal heart, great vessels a nd pericardium by noncontrast CT. No chest wall abnormality. See abdominal CT for upper abdomen. Impression: 1. No abnormality of the chest. All CT scans are performed using dose optimization techniques as appropriate to the performed exam an d include at least one of the following: Automated exposure control, adjustment of the mA and/or kV according t o size, and the use of iterative reconstruction technique.
--- NOTE | 2020-09-09 02:06 | CT ---
EXAM: CT of the abdomen and pelvis without contrast. HISTORY: Upper abdominal pain. PROCEDURE: Contiguous axial CT images of the abdomen and pelvis without contrast with coronal and sa gittal reformats. All CT scans are performed using dose optimization techniques as appropriate to a performed exam including the following: Automated exposure control, Adjustment of the mA and/or kV ac cording to patient size, Use of iterative reconstruction technique. FINDINGS: The liver, gallbladder, pancreas, spleen, adrenal glands and kidneys are normal in appearan ce. The abdominal aorta is normal in appearance. The appendix is normal in appearance. There is fe loida stasis in the colon. No bowel obstruction. No free fluid or free air in the abdomen or pelvis. The bladder is adequately filled and normal in appearance. The seminal vesicles and prostate gland are unremarkable. There are degenerative changes in the spine. Impression: Colonic fecal stasis. All CT scans are performed using dose optimization techniques as appropriate to the performed exam an d include at least one of the following: Automated exposure control, adjustment of the mA and/or kV according t o size, and the use of iterative reconstruction technique.
[2020-09-09] MEDS ORDERED: DILAUDID 1 MG/ML SYRINGE IVP PRN (02:50)
[2020-09-09] MEDS ORDERED: ZOFRAN 4 MG/2 ML IVP PRN (02:50)
[2020-09-09] MEDS ORDERED: MILK OF MAGNESIA PO STA (02:55)
[2020-09-09] MEDS ORDERED: SENNA PO STA (02:55)
[2020-09-09] MEDS: SODIUM CHLORIDE 1,000 ML IV SCH ×3 (04:18→18:15)
[2020-09-09 04:27] VITALS: BMI 26.5
[2020-09-09] MEDS: PROTONIX IV IVP SCH ×2 (05:00→16:06)
[2020-09-09 08:11] LABS: BASOPHILS # (AUTO) 0.1 K/uL (0-0.2); BASOPHILS % (AUTO) 0.3 % (0.0-3.0); EOSINOPHILS % (AUTO) 0.1 % (0.0-7.0); HEMATOCRIT 39.5 % (42.0-52.0); HEMOGLOBIN 13.7 g/dl (14.0-18.0); IMMATURE GRANULOCYTE # (AUTO) 0.1 (0.0-1.0); IMMATURE GRANULOCYTE % (AUTO) 0.5 % (0.0-5.0); LYMPHOCYTES # (AUTO) 1.3 K/uL (0.60-3.4); LYMPHOCYTES % (AUTO) 5.5 (10.0-50.0); MEAN CORPUSCULAR HEMOGLOBIN 31.1 pg (27.0-31.0); MEAN CORPUSCULAR HGB CONC 34.7 (31.8-35.4); MEAN CORPUSCULAR VOLUME 89.8 fl (80.0-94.0); MONOCYTES % (AUTO) 4.4 (0-10); NEUTROPHILS # (AUTO) 20.7 K/ul (2.0-6.9); NEUTROPHILS % (AUTO) 89.2 % (42.2-75.2); PLATELET COUNT 222 10^3/uL (140-440); RDW COEFFICIENT OF VARIATION 12.7 % (11.6-14.8)
[2020-09-09 08:19] LABS: BLOOD UREA NITROGEN 12.7 mg/dL (9-20); CALCIUM 8.32 mg/dL (8.4-10.2); CARBON DIOXIDE 28.4 mmol/L (22-30.0); CHLORIDE 99.8 mmol/L (98-107); CREATININE 1.07 mg/dL (0.60-1.10); GLUCOSE 101.1 mg/dL (74-106); POTASSIUM 4.03 mmol/L (3.5-5.1); SODIUM 134.5 mmol/L (134.5-145)
[2020-09-09 08:20] LABS: WHITE BLOOD COUNT 23.21 K/ul (4.2-10.2)
[2020-09-09] MEDS: LOVENOX SUBCUT SCH (08:49)
[2020-09-09] MEDS ORDERED: ROCEPHIN 1 GM/50 ML D5W 1 GM/50 ML BAG IV SCH ×2 (09:00→21:00)
[2020-09-09 09:14] LABS: BILIRUBIN,URINE Negative (NEGATIVE); CLARITY,URINE Clear (CLEAR); COLOR,URINE Yellow (YELLOW); GLUCOSE, URINE (UA) Negative (NEGATIVE); KETONES,URINE Trace (NEGATIVE); LEUKOCYTE ESTERASE ,URINE Negative (NEGATIVE); NITRITE,URINE Negative (NEGATIVE); PROTEIN,URINE 1+ (NEGATIVE); URINE, BLOOD Trace-intact (NEGATIVE)
[2020-09-09 09:17] LABS: SQUAMOUS EPITHELIAL CELL,UR NOT PRESENT (0-5)
[2020-09-09 09:18] LABS: MUCUS,URINE 2+ (NOT PRESENT)
[2020-09-09] MEDS: TYLENOL PO PRN ×2 (09:18→18:39)
--- NOTE | 2020-09-09 11:52 | PCM ---
Chief Complaint Chief Complaint: Severe sore throat History of Present Illness History of Present Illness: 35 y/o W male presented to the ER last evening with a 2 day history of Sore throat, upset stomach stating the he was unable to smell, had nausea and vomiting with Mid back pain, Complained this morning with headache and fever and chill. Admits to using Meth last week. Has Pos strep screen in the ER. Admitted by ER physician for definitive therpay.CT scan abdomen revealed large amount of retained fecal material. Enenma ordered but pt refused. States normally has no problems with constipation but currently feels fullness and has not had a BM for 48 hrs COVID 19 neg Review of Systems Constitutional: Reports Fever, Chills, Weakness, Sweats, Fatigue and Loss of ap petite Eyes: Denies No symptoms, Blurred vision, Double-vision, Discharge, Itching, Pain, Redness, Photophobia and Other Ears: Denies No symptoms, Pain, Bleeding, Drainage, Ringing, Hearing loss and Other Nose: Reports Congestion; Denies No symptoms, Bleeding, Discharge and Other Throat: Reports Pain, Swelling and Voice change Mouth: Reports Pain Respiratory: Reports No symptoms Cardiovascular: Reports No symptoms Gastrointestinal: Reports Abdominal pain (Bloating), Nausea and Vomiting Genitourinary: Reports No symptoms Neurological: Reports No symptoms and Headache Musculoskeletal: Reports No symptoms Skin: Reports No symptoms Immunology: Reports No symptoms Hematology: Reports No symptoms Endocrine: Reports No symptoms Psychiatric: Reports No symptoms Habits: Reports Substance use Allergies Allergies Allergy/AdvReac Type Severity Reaction Status Date / Time sulfamethoxazole AdvReac Rash Verified 09/09/20 00:18 [From Bactrim] trimethoprim [From Bactrim] AdvReac yeast Verified 09/09/20 00:18 infection [facility] Medical History (Updated 09/09/20 @ 11:50 by RUDY ADAM DO) Chronic headaches Concussion injury of brain Contusion of ankle Extremity pain Nausea Strep pharyngitis Surgical History Status post nasal surgery Family History FATHER PAD (peripheral artery disease) Hypertension Hyperlipemia Mother No problems noted. 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 History of recent travel: No Medications Medications: Medications Generic Name Dose Route Start Last Admin Trade Name Freq PRN Reason Stop Dose Admin Acetaminophen 650 mg 09/09/20 02:50 09/09/20 09:18 Acetaminophen 325 Mg Tablet PO 650 mg Q4H PRN Administration Fever > 102 Enoxaparin Sodium 40 mg 09/09/20 09:00 09/09/20 08:49 Enoxaparin Sodium 40 Mg/0.4 Ml Syr SUBCUT 40 mg DAILY ELPIDIO Administration Hydromorphone HCl 1 mg 09/09/20 02:50 Hydromorphone Hcl 1 Mg/Ml Syringe IVP Q4HR PRN Severe Pain Sodium Chloride 1,000 mls @ 150 mls/hr 09/09/20 03:00 09/09/20 10:58 Sodium Chloride IV 150 mls/hr .Q6H40M ELPIDIO Administration CEFTRIAXONE/D5W 1 GM PREMIX 1 gm in 50 mls @ 75 mls/hr 09/09/20 21:00 Rocephin 1 Gm/50 Ml D5w IV 09/12/20 20:59 BEDTIME ELPIDIO Ondansetron HCl 4 mg 09/09/20 02:50 Ondansetron Hcl/Pf 4 Mg/2 Ml Sdv IVP Q6H PRN Nausea / Vomiting Pantoprazole Sodium 40 mg 09/09/20 04:30 09/09/20 05:00 Pantoprazole Sodium 40 Mg Vial IVP 40 mg Q12H ELPIDIO Administration Body Composition Height: 6 ft 1 in Weight: 201 lb 4.513 oz Body Mass Index (BMI): 26.5 Vital Signs Temperature: 102.1 F Pulse Rate: 118 Respiratory Rate: 24 Blood Pressure: 92/51 O2 Sat by Pulse Oximetry: 96 Physical Examination Appearance: Reports Ill-appearing and Well-nourished Ill-appearing: Moderate Pain Distress: Mild Eyes: Reports EBONY, EOMI, Conjunctiva clear, Conjunctiva inflammed, Conjunctiva pale, Right pupil size, Left pupil size and Other ENT: Reports Ears normal, Nose normal, Oropharynx normal (pharynx and tonsils erythrema with associated exudative changes), TMs Occluded, Rhinorrhea, Epistaxis, Erythema (encompassing the pharynx and tonsils with associated exudative changes), Exudate, Dry mucosa and Other Neck: Supple Respiratory: Reports Airway patent, Breath sounds clear, Breath sounds equal, Breath sounds diminished, Respirations nonlabored, Airway obstructed, Crackles, Rhonchi, Wheezes, Retractions and Other Cardiovascular: Reports RRR, Pulses normal, No rub, No murmur, Irregular rhythm, Tachycardia, Bradycardia, Abnormal pulses, Murmur and Other GI/: Reports Soft, Nontender, No Organomegaly, Tender (no guarding or rebound) and Hepatomegaly Musculoskeletal: Reports Normal strength, ROM intact and No edema Skin: Reports Warm, Normal color, Pale and Diaphoretic Neurological: Reports Sensation intact, Motor intact, Reflexes intact, Cranial nerves intact, Alert, Oriented and Alert to verbal Psychiatric: Reports Affect appropriate, Mood appropriate and Anxious Lab/Tests/Diagnostic Imaging Lab/Tests/Diagnostic Imaging: Lab Review 09/09/20 09/09/20 09/09/20 00:05 00:40 00:40 WBC 23.17 H RBC 4.32 L Hgb 13.5 L Hct 39.0 L MCV 90.3 MCH 31.3 H MCHC 34.6 RDW Coeff of Rogelio 12.5 Plt Count 237 Immature Gran % (Auto) Neut % (Auto) Lymph % (Auto) [place] % (Auto) Eos % (Auto) Baso % (Auto) Neut # (Auto) Lymph # (Auto) [place] # (Auto) Eos # (Auto) Baso # (Auto) Immature Gran # (Auto) Neutrophils % (Manual) 92.0 H Lymphocytes % (Manual) 3.0 L Monocytes % (Manual) 5.0 Anisocytosis Not present Sodium 134.2 L Potassium 3.63 Chloride 100.5 Carbon Dioxide 25.8 Anion Gap 11.53 BUN 13.7 Creatinine 1.17 H Estimated GFR (MDRD) 70.00 BUN/Creatinine Ratio 11.70 Glucose 95.3 Lactic Acid Calcium 8.58 Total Bilirubin 0.60 AST 22.2 ALT 17.6 Alkaline Phosphatase 86.1 Total Protein 7.26 Albumin 3.86 Globulin 3.40 Albumin/Globulin Ratio 1.13 Amylase 50.8 Lipase 66.9 Procalcitonin Urine Color Urine Clarity Urine pH Ur Specific [place] Urine Protein Urine Glucose (UA) Urine Ketones Urine Blood Urine Nitrite Urine Bilirubin Urine Urobilinogen Ur Leukocyte Esterase Urine Microscopic RBC Ur Squamous Epith Cells Urine Mucus Adenovirus (PCR) Not detected B. pertussis DNA (PCR) Not detected B.parapertussis DNA PCR Not detected C. pneumoniae DNA (PCR) Not detected Coronavirus OC43 (PCR) Not detected Coronavirus HKU1 (PCR) Not detected Coronavirus 229E (PCR) Not detected Coronavirus NL63 (PCR) Not detected Human Metapneumovir PCR Not detected Influenza Type A (PCR) Not detected Influenza B (RT-PCR) Not detected M. pneumoniae (PCR) Not detected Parainfluenza 1 (PCR) Not detected Parainfluenza 2 (PCR) Not detected Parainfluenza 3 (PCR) Not detected Parainfluenza 4 (PCR) Not detected RSV (PCR) Not detected Entero/Rhino (PCR) Not detected SARS-CoV-2 (PCR) Not detected 09/09/20 09/09/20 09/09/20 00:40 00:40 07:59 WBC 23.21 H RBC 4.40 L Hgb 13.7 L Hct 39.5 L MCV 89.8 MCH 31.1 H MCHC 34.7 RDW Coeff of Rogelio 12.7 Plt Count 222 Immature Gran % (Auto) 0.5 Neut % (Auto) 89.2 H Lymph % (Auto) 5.5 L [place] % (Auto) 4.4 Eos % (Auto) 0.1 Baso % (Auto) 0.3 Neut # (Auto) 20.7 H Lymph # (Auto) 1.3 [place] # (Auto) 1.0 Eos # (Auto) 0.0 Baso # (Auto) 0.1 Immature Gran # (Auto) 0.1 Neutrophils % (Manual) Lymphocytes % (Manual) Monocytes % (Manual) Anisocytosis Sodium Potassium Chloride Carbon Dioxide Anion Gap BUN Creatinine Estimated GFR (MDRD) BUN/Creatinine Ratio Glucose Lactic Acid 1.49 Calcium Total Bilirubin AST ALT Alkaline Phosphatase Total Protein Albumin Globulin Albumin/Globulin Ratio Amylase Lipase Procalcitonin 0.09 Urine Color Urine Clarity Urine pH Ur Specific [place] Urine Protein Urine Glucose (UA) Urine Ketones Urine Blood Urine Nitrite Urine Bilirubin Urine Urobilinogen Ur Leukocyte Esterase Urine Microscopic RBC Ur Squamous Epith Cells Urine Mucus Adenovirus (PCR) B. pertussis DNA (PCR) B.parapertussis DNA PCR C. pneumoniae DNA (PCR) Coronavirus OC43 (PCR) Coronavirus HKU1 (PCR) Coronavirus 229E (PCR) Coronavirus NL63 (PCR) Human Metapneumovir PCR Influenza Type A (PCR) Influenza B (RT-PCR) M. pneumoniae (PCR) Parainfluenza 1 (PCR) Parainfluenza 2 (PCR) Parainfluenza 3 (PCR) Parainfluenza 4 (PCR) RSV (PCR) Entero/Rhino (PCR) SARS-CoV-2 (PCR) 09/09/20 09/09/20 07:59 08:50 WBC RBC Hgb Hct MCV MCH MCHC RDW Coeff of Rogelio Plt Count Immature Gran % (Auto) Neut % (Auto) Lymph % (Auto) [place] % (Auto) Eos % (Auto) Baso % (Auto) Neut # (Auto) Lymph # (Auto) [place] # (Auto) Eos # (Auto) Baso # (Auto) Immature Gran # (Auto) Neutrophils % (Manual) Lymphocytes % (Manual) Monocytes % (Manual) Anisocytosis Sodium 134.5 Potassium 4.03 Chloride 99.8 Carbon Dioxide 28.4 Anion Gap 10.33 BUN 12.7 Creatinine 1.07 Estimated GFR (MDRD) 78.00 BUN/Creatinine Ratio 11.86 Glucose 101.1 Lactic Acid Calcium 8.32 L Total Bilirubin AST ALT Alkaline Phosphatase Total Protein Albumin Globulin Albumin/Globulin Ratio Amylase Lipase Procalcitonin Urine Color Yellow Urine Clarity Clear Urine pH 7.0 Ur Specific [place] >=1.030 Urine Protein 1+ H Urine Glucose (UA) Negative Urine Ketones Trace H Urine Blood Trace-intact H Urine Nitrite Negative Urine Bilirubin Negative Urine Urobilinogen 2.0 H Ur Leukocyte Esterase Negative Urine Microscopic RBC 5-10 Ur Squamous Epith Cells Not present Urine Mucus 2+ Adenovirus (PCR) B. pertussis DNA (PCR) B.parapertussis DNA PCR C. pneumoniae DNA (PCR) Coronavirus OC43 (PCR) Coronavirus HKU1 (PCR) Coronavirus 229E (PCR) Coronavirus NL63 (PCR) Human Metapneumovir PCR Influenza Type A (PCR) Influenza B (RT-PCR) M. pneumoniae (PCR) Parainfluenza 1 (PCR) Parainfluenza 2 (PCR) Parainfluenza 3 (PCR) Parainfluenza 4 (PCR) RSV (PCR) Entero/Rhino (PCR) SARS-CoV-2 (PCR) Orders Category Date Time Status PLACE PATIENT OBSERVATION .TO MEDSURG (MONITORED BED ADMISSION 09/09/20 02:55 Active ) EKG-(ED ONLY) Stat CARDIO 09/09/20 00:25 Completed GIVE HS SNACK 2100 CARE 09/09/20 02:51 Active INTAKE & OUTPUT Q8HR CARE 09/09/20 02:50 Active TELEMETRY MONITORING TELE CARE 09/09/20 02:57 Active VITAL SIGNS Q4HR CARE 09/09/20 02:50 Active CLEAR LIQUID DIET DIETARY 09/09/20 Breakfast Ordered HS SNACK DIETARY 09/09/20 Dinner Ordered ED ENEMA/RECTAL TUBE .ONCE EMERGENCY 09/09/20 02:47 Active AMYLASE Stat LAB 09/09/20 00:40 Completed BASIC METABOLIC PANEL DAILY@0600 LAB 09/09/20 07:59 Completed BASIC METABOLIC PANEL DAILY@0600 LAB 09/10/20 06:00 Ordered BLOOD CULTURE (ED ONLY) Stat LAB 09/09/20 00:40 Received CBC W/ AUTO DIFF DAILY@0600 LAB 09/09/20 07:59 Completed CBC W/ AUTO DIFF DAILY@0600 LAB 09/10/20 06:00 Ordered CBC W/ AUTO DIFF Stat LAB 09/09/20 00:40 Completed COMPREHENSIVE METABOLIC PANEL Stat LAB 09/09/20 00:40 Completed GASTRIC OCCULT BLOOD AND PH Stat LAB 09/09/20 00:44 Ordered LACTIC ACID Stat LAB 09/09/20 00:40 Completed LIPASE Stat LAB 09/09/20 00:40 Completed MANUAL DIFFERENTIAL Stat LAB 09/09/20 00:40 Completed MOLECULAR GROUP A STREP Stat LAB 09/09/20 01:20 Completed PROCALCITONIN Stat LAB 09/09/20 00:40 Completed RESPIRATORY PANEL 2.1 (PCR) Stat LAB 09/09/20 00:05 Completed URINALYSIS C & S IF INDICATED Stat LAB 09/09/20 08:50 Completed Acetaminophen [Tylenol] MEDS 09/09/20 00:25 Discontinued 650 mg PO ONCE STA Acetaminophen [Tylenol] MEDS 09/09/20 02:50 Active 650 mg PO Q4H PRN Ceftriaxone/D5w 1 gm Premix [Rocephin 1 gm/50 ml D5w] MEDS 09/09/20 21:00 Active 1 gm in 50 ml IV BEDTIME Ceftriaxone/D5w 1 gm Premix [Rocephin 1 gm/50 ml D5w] MEDS 09/09/20 09:00 Di scontinued 1 gm in 50 ml IV DAILY Ceftriaxone/D5w 1 gm Premix [Rocephin 1 gm/50 ml D5w] MEDS 09/09/20 01:30 Discontinued 1 gm in 50 ml IV ONCE Enoxaparin Sodium [Lovenox] MEDS 09/09/20 09:00 Active 40 mg SUBCUT DAILY Hydromorphone HCl [Dilaudid 1 mg/ml Syringe] MEDS 09/09/20 00:44 Discontinued 1 mg IVP ONCE STA Hydromorphone HCl [Dilaudid 1 mg/ml Syringe] MEDS 09/09/20 02:50 Active 1 mg IVP Q4HR PRN Magnesium Hydroxide [Milk of Magnesia] MEDS 09/09/20 02:55 Discontinued 30 ml PO ONCE STA Ondansetron HCl/Pf [Zofran 4 mg/2 ml] MEDS 09/09/20 00:32 Discontinued 4 mg IVP ONCE STA Ondansetron HCl/Pf [Zofran 4 mg/2 ml] MEDS 09/09/20 02:50 Active 4 mg IVP Q6H PRN Pantoprazole Sodium [Protonix IV] MEDS 09/09/20 04:30 Active 40 mg IVP Q12H Pantoprazole Sodium [Protonix IV] MEDS 09/09/20 00:44 Discontinued 80 mg IVP ONCE STA Ringers Lactated Solution [Lactated Ringers] 1,000 ml MEDS 09/09/20 00:46 Discontinued IV BOLUS Sennosides [Senna] MEDS 09/09/20 02:55 Discontinued 17.2 mg PO ONCE STA Sodium Chloride 0.9% [Sodium Chloride] 1,000 ml MEDS 09/09/20 03:00 Active IV 150 mls/hr Sodium Chloride 0.9% [Sodium Chloride] 1,000 ml MEDS 09/09/20 00:46 Discontinued IV BOLUS RESUSCITATION STATUS Routine OTHERS 09/09/20 02:[address] ABDOMEN/PELVIS WO CONTRAST Stat RADS 09/09/20 00:[address] CHEST W/O CONTRAST Stat RADS 09/09/20 00:44 Completed Medications Generic Name Dose Route Start Last Admin Trade Name [place]ell PRN Reason Stop Dose Admin Acetaminophen 650 mg 09/09/20 02:50 09/09/20 09:18 Acetaminophen 325 Mg Tablet PO 650 mg Q4H PRN Administration Fever > 102 Enoxaparin Sodium 40 mg 09/09/20 09:00 09/09/20 08:49 Enoxaparin Sodium 40 Mg/0.4 Ml Syr SUBCUT 40 mg DAILY ELPIDIO Administration Hydromorphone HCl 1 mg 09/09/20 02:50 Hydromorphone Hcl 1 Mg/Ml Syringe IVP Q4HR PRN Severe Pain Sodium Chloride 1,000 mls @ 150 mls/hr 09/09/20 03:00 09/09/20 10:58 Sodium Chloride IV 150 mls/hr .Q6H40M ELPIDIO Administration CEFTRIAXONE/D5W 1 GM PREMIX 1 gm in 50 mls @ 75 mls/hr 09/09/20 21:00 Rocephin 1 Gm/50 Ml D5w IV 09/12/20 20:59 BEDTIME ELPIDIO Ondansetron HCl 4 mg 09/09/20 02:50 Ondansetron Hcl/Pf 4 Mg/2 Ml Sdv IVP Q6H PRN Nausea / Vomiting Pantoprazole Sodium 40 mg 09/09/20 04:30 09/09/20 05:00 Pantoprazole Sodium 40 Mg Vial IVP 40 mg Q12H ELPIDIO Administration Discontinued Medications Generic Name Dose Route Start Last Admin Trade Name Lowell PRN Reason Stop Dose Admin Acetaminophen 650 mg 09/09/20 00:25 09/09/20 01:13 Acetaminophen 325 Mg Tablet PO 09/09/20 00:26 650 mg ONCE STA Administration Hydromorphone HCl 1 mg 09/09/20 00:44 09/09/20 01:14 Hydromorphone Hcl 1 Mg/Ml Syringe IVP 09/09/20 00:45 1 mg ONCE STA Administration Sodium Chloride 1,000 mls @ 1,000 mls/hr 09/09/20 00:46 09/09/20 01:13 Sodium Chloride IV 09/09/20 01:45 1,000 mls/hr BOLUS STA Administration Lactated Ringer's 1,000 mls @ 1,000 mls/hr 09/09/20 00:46 09/09/20 01:56 Lactated Ringers IV 09/09/20 01:45 1,000 mls/hr BOLUS STA Administration CEFTRIAXONE/D5W 1 GM PREMIX 1 gm in 50 mls @ 75 mls/hr 09/09/20 01:30 09/09/20 02:06 Rocephin 1 Gm/50 Ml D5w IV 09/09/20 02:09 75 mls/hr ONCE STA Administration CEFTRIAXONE/D5W 1 GM PREMIX 1 gm in 50 mls @ 75 mls/hr 09/09/20 09:00 Rocephin 1 Gm/50 Ml D5w IV 09/12/20 08:59 DAILY ELPIDIO Magnesium Hydroxide 30 ml 09/09/20 02:55 09/09/20 04:16 Magnesium Hydroxide 30 Ml Cup PO 09/09/20 02:56 30 ml ONCE STA Administration Ondansetron HCl 4 mg 09/09/20 00:32 09/09/20 01:14 Ondansetron Hcl/Pf 4 Mg/2 Ml Sdv IVP 09/09/20 00:33 4 mg ONCE STA Administration Pantoprazole Sodium 80 mg 09/09/20 00:44 09/09/20 01:13 Pantoprazole Sodium 40 Mg Vial IVP 09/09/20 00:45 80 mg ONCE STA Administration Sennosides 17.2 mg 09/09/20 02:55 09/09/20 04:17 Sennosides 8.6 Mg Tablet PO 09/09/20 02:56 17.2 mg ONCE STA Administration Assessment (1) Constipated: Status: Acute Code(s): K59.00 - Constipation, unspecified SNOMED Code(s): 27023166 Qualifiers: Constipation type: slow transit constipation Qualified Code(s): K59.01 - Slow transit constipation (2) Vomiting: Status: Acute Code(s): R11.10 - Vomiting, unspecified SNOMED Code(s): 886307475 (3) Nausea: Status: Acute Code(s): R11.0 - Nausea SNOMED Code(s): 293183820 (4) Chronic headaches: Status: Chronic Code(s): R51 - Headache SNOMED Code(s): 640191609 Qualifiers: Headache type: unspecified Intractability: not intractable Qualified Code(s): R51 - Headache (5) Strep pharyngitis: Status: Acute Code(s): J02.0 - Streptococcal pharyngitis SNOMED Code(s): 07272261 (6) Sepsis: Status: Acute Code(s): A41.9 - Sepsis, unspecified organism SNOMED Code(s): 47190689 Qualifiers: Sepsis acute organ dysfunction status: without acute organ dysfunction Sepsis type: Streptococcus group A Qualified Code(s): A40.0 - Sepsis due to streptococcus, group A
[2020-09-09] MEDS ORDERED: ANCEF 1 GM in SODIUM CHLORIDE 50 ML IV SCH (12:30)
[2020-09-09] MEDS: TORADOL IVP PRN ×2 (12:39→20:40)
[2020-09-09] MEDS: ANCEF 1 GM/50 ML D5W 1 GM/50 ML BAG IV SCH ×2 (13:01→20:40)
[2020-09-09] MEDS ORDERED: CITRATE OF MAGNESIA PO STA (13:29)
[2020-09-10] MEDS: SODIUM CHLORIDE 1,000 ML IV SCH ×2 (01:54→11:17)
[2020-09-10 05:02] LABS: BLOOD UREA NITROGEN 15.5 mg/dL (9-20); CALCIUM 8.11 mg/dL (8.4-10.2); CARBON DIOXIDE 27.3 mmol/L (22-30.0); CHLORIDE 105.1 mmol/L (98-107); CREATININE 1.13 mg/dL (0.60-1.10); GLUCOSE 97.5 mg/dL (74-106); POTASSIUM 4.11 mmol/L (3.5-5.1); SODIUM 136.8 mmol/L (134.5-145)
[2020-09-10] MEDS: TORADOL IVP PRN (05:09)
[2020-09-10] MEDS: ANCEF 1 GM/50 ML D5W 1 GM/50 ML BAG IV SCH (05:12)
[2020-09-10] MEDS: PROTONIX IV IVP SCH (05:12)
[2020-09-10 05:17] LABS: BASOPHILS # (AUTO) 0.1 K/uL (0-0.2); BASOPHILS % (AUTO) 0.3 % (0.0-3.0); EOSINOPHILS # (AUTO) 0.2 K/ul (0.0-0.7); EOSINOPHILS % (AUTO) 1.2 % (0.0-7.0); HEMOGLOBIN 13.5 g/dl (14.0-18.0); IMMATURE GRANULOCYTE # (AUTO) 0.1 (0.0-1.0); IMMATURE GRANULOCYTE % (AUTO) 0.4 % (0.0-5.0); LYMPHOCYTES # (AUTO) 1.4 K/uL (0.60-3.4); MEAN CORPUSCULAR HEMOGLOBIN 31.6 pg (27.0-31.0); MEAN CORPUSCULAR HGB CONC 34.6 (31.8-35.4); MEAN CORPUSCULAR VOLUME 91.3 fl (80.0-94.0); MONOCYTES # (AUTO) 0.8 K/uL (0.4-2.0); MONOCYTES % (AUTO) 4.4 (0-10); NEUTROPHILS # (AUTO) 15.1 K/ul (2.0-6.9); NEUTROPHILS % (AUTO) 85.7 % (42.2-75.2); PLATELET COUNT 206 10^3/uL (140-440); RDW COEFFICIENT OF VARIATION 12.8 % (11.6-14.8); RED BLOOD COUNT 4.27 10^6/ul (4.70-6.10)
[2020-09-10 05:18] LABS: WHITE BLOOD COUNT 17.61 K/ul (4.2-10.2)
[2020-09-10] MEDS ORDERED: MOTRIN PO PRN (07:53)
[2020-09-10] MEDS: SODIUM CHLORIDE 500 ML IV SCH ×2 (08:00→08:21)
[2020-09-10] MEDS ORDERED: SODIUM CHLORIDE 500 ML IV ONE (08:15)
[2020-09-10] MEDS ORDERED: SODIUM CHLORIDE 500 ML IV SCH (08:30)
[2020-09-10] MEDS ORDERED: VANCOMYCIN 1.5 GRAM/300 ML PREMIX 1.5 GM/300 ML BAG IV SCH ×2 (09:00)
[2020-09-10] MEDS: LOVENOX SUBCUT SCH (09:05)
--- NOTE | 2020-09-10 12:09 | PCM.PROG ---
Objective: Vitals: T=97.9 F, P=82, R=16, UW=264/69, SPO2=98. S: pt feels better and wants to go home. He is still having chills and was sweating profusely. Not ill- looking. HEENT: []hyperemic, mildly swollen, exudative tonsils. TMs wnl. Neck: []supple Lungs: []minimal occasional rhonchi. CVS: []rrr Abdomen: []benign Extremities: []no acute abnormality Neurological: []non-focal Skin: []no acute abnormality. Lab/Tests/Diagnostic Imaging: []17k wbc. PLAN: 1. Pharyngitis: continue antibiotics. Add decongestant. 2. Sepsis: Afebrile, normotensive. ---will continue fluid resuscitation, antipyretics and add Vancomycin. 3. Constipation: pt refused appropriate meds. (1) Constipated: Status: Acute Code(s): K59.00 - Constipation, unspecified SNOMED Code(s): 73306141 (2) Vomiting: Status: Acute Code(s): R11.10 - Vomiting, unspecified SNOMED Code(s): 028921871 (3) Nausea: Status: Acute Code(s): R11.0 - Nausea SNOMED Code(s): 585935582 (4) Chronic headaches: Status: Chronic Code(s): R51 - Headache SNOMED Code(s): 672961789 (5) Strep pharyngitis: Status: Acute Code(s): J02.0 - Streptococcal pharyngitis SNOMED Code(s): 89057181 (6) Sepsis: Status: Acute Code(s): A41.9 - Sepsis, unspecified organism SNOMED Code(s): 75650303
[2020-09-10] MEDS ORDERED: ATIVAN PO PRN (15:10)
[2020-09-10 18:16] VITALS: BP 122/72; TEMP 98
[2020-09-10] MEDS ORDERED: PROTONIX IV IVP SCH (21:00)
--- NOTE | 2020-09-22 22:03 | PCM.DC ---
Final Diagnosis:Constipation Gastroenteritis Headache Pharyngitis Sepsis. (1) Constipated: Status: Acute Code(s): K59.00 - Constipation, unspecified SNOMED Code(s): 45795320 Qualifiers: Constipation type: slow transit constipation Qualified Code(s): K59.01 - Slow transit constipation (2) Vomiting: Status: Acute Code(s): R11.10 - Vomiting, unspecified SNOMED Code(s): 658354455 (3) Nausea: Status: Acute Code(s): R11.0 - Nausea SNOMED Code(s): 399197303 (4) Chronic headaches: Status: Chronic Code(s): R51 - Headache SNOMED Code(s): 756959452 Qualifiers: Headache type: unspecified Intractability: not intractable Qualified Code(s): R51 - Headache (5) Strep pharyngitis: Status: Acute Code(s): J02.0 - Streptococcal pharyngitis SNOMED Code(s): 79326568 (6) Sepsis: Status: Acute Code(s): A41.9 - Sepsis, unspecified organism SNOMED Code(s): 83323674 Qualifiers: Sepsis acute organ dysfunction status: without acute organ dysfunction Sepsis type: Streptococcus group A Qualified Code(s): A40.0 - Sepsis due to streptococcus, group A Medications at Discharge: Ambulatory Orders Medication Instructions Recorded 1 [No Reported Medications] 08/10/19
--- NOTE | 2020-09-24 17:13 | PCM.DC ---
Final Diagnosis: Strep pharyngitis Gastroenteritis Headache Constipation (1) Constipated: Status: Acute Code(s): K59.00 - Constipation, unspecified SNOMED Code(s): 90789281 Qualifiers: Constipation type: slow transit constipation Qualified Code(s): K59.01 - Slow transit constipation (2) Vomiting: Status: Acute Code(s): R11.10 - Vomiting, unspecified SNOMED Code(s): 849924804 (3) Nausea: Status: Acute Code(s): R11.0 - Nausea SNOMED Code(s): 282184057 (4) Chronic headaches: Status: Chronic Code(s): R51 - Headache SNOMED Code(s): 246804797 Qualifiers: Headache type: unspecified Intractability: not intractable Qualified Code(s): R51 - Headache (5) Strep pharyngitis: Status: Acute Code(s): J02.0 - Streptococcal pharyngitis SNOMED Code(s): 60345019 (6) Sepsis: Status: Acute Code(s): A41.9 - Sepsis, unspecified organism SNOMED Code(s): 89681457 Qualifiers: Sepsis acute organ dysfunction status: without acute organ dysfunction Sepsis type: Streptococcus group A Qualified Code(s): A40.0 - Sepsis due to streptococcus, group A Reason for Hospitalization: Pt had vital signs and clinical findings suggesting sepsis. Prognosis at Discharge: Pt chose to leave prior to completion of the treatment regimen. His prognosis is uncertain. Condition at Discharge: Serious. Medications at Discharge: Ambulatory Orders Medication Instructions Recorded Please see written Rx, to be picked up by the pt or family. 1 [No Reported Medications] 08/10/19 Lab/Diagnostics: leucocytosis, +Strep screen, CT abd/pelvis: mild constipation. Education Provided to Patient and Family: Please see AMA and discharge documents. Follow-ups: PMD in 1-2 days. Discharge Disposition: AMA Hospital Course: Pt was hospitalized and appropriate treatment instituted, with good effect. pt did refuse treatment for constipation. Plan: [facility] was written and pt or family will be encouraged to continue meds at home.
== END 2020-09-10 18:40 | disposition left against medical advice (07) ==
LOC: MEDSURG A 00:03 → ED 00:03 → MEDSURG A 03:54
PROVIDERS: ADMIT Internal Medicine Geriatric Medicine; ATTEND Emergency Medicine
DX: R51.9 Headache, unspecified; Z20.822 Contact with and (suspected) exposure to COVID-19; R10.13 Epigastric pain; F41.9 Anxiety disorder, unspecified; R50.9 Fever, unspecified; R07.0 Pain in throat; M54.9 Dorsalgia, unspecified